=== PATIENT | male | born 1940 | race Caucasian/White ===

== ENCOUNTER 2024-03-26 13:06 | Emergency (ER) | payer MEDICARE, OTHER ==
[~2024-03-26] VITALS: Ht 182.9 cm; Wt 93.2 kg
[2024-03-26 13:10] VITALS: BP 151/80; TEMP 97.7
[2024-03-26] MEDS ORDERED: LOPRESSOR 225 MG/TAB PO (14:45)
[2024-03-26] MEDS ORDERED: PRADAXA 150MG150 MG PO (14:46)
[2024-03-26] MEDS ORDERED: TAMBOCOR50 MG PO (14:46)
[2024-03-26] MEDS ORDERED: HYTRIN 5MG C5 MG/CAP PO (14:47)
[2024-03-26] MEDS ORDERED: B COMPLEX #11 TA1 PO (14:47)
[2024-03-26] MEDS ORDERED: GLUCOTROL 5M5 MG/TAB PO (14:47)
[2024-03-26] MEDS ORDERED: GLUCOPHAGE XR500 M1 PO (14:48)
[2024-03-26] MEDS ORDERED: VITAMIN D31000 I1 PO (14:49)
[2024-03-26] MEDS ORDERED: FLOMAX 0.40.4 MG/CAP PO (14:49)
[2024-03-26 16:58] VITALS: PULSE 78
== END 2024-03-26 16:58 | disposition home or self-care (01) ==
LOC: COL.ER 13:06
DX: K56.41 Fecal impaction (principal)